=== PATIENT | male | born 2000 | race African-American/Black ===

== ENCOUNTER 2025-04-10 08:43 | Inpatient (IN) | payer OTHER ==
[~2025-04-10] VITALS: Ht 182.9 cm; Wt 74.9 kg
--- NOTE | 2025-04-10 09:01 | ED.PDOC ---
History of Present Illness HPI Comments 25-year-old male BIBA with prior medical history of diabetes in the chief complaint of abdominal pain. EMS report that the patient has been having abdominal pain, chest tightness, N/V with emesis being redby patient for the past two days. Patient did take his insulin yesterday morning and when EMS arrived on scene three 77 and in the ER of 330. Denies chills, fever, /D, SOB, CP. No other associated symptoms, modifiers, recent injuries or sick contacts present at this time. Chief Complaint: Abdominal Pain Time Seen by MD: 09:00 Reviewed Notes: Nurses Notes, Medications, Allergies Allergies: Coded Allergies: NO KNOWN ALLERGIES (Unverified , 04/10/25) Information Source: Patient, Emergency Med Personnel Mode of Arrival: EMS Severity: Moderate Timing: Hours Duration: Since onset, Hours Prehospital treatment: None Past Medical History PAST MEDICAL HISTORY: DM Surgical History: Denies all surgeries Family History Family History: Reviewed,noncontributory to illness, Unknown Social History Smoker: Non-Smoker Alcohol: Denies ETOH Use Drugs: Denies Drug Use Lives In: Home Constitutional: denies: chills, diaphoresis, fatigue, fever, malaise, sweats, weakness, others EENTM: denies: blurred vision, double vision, ear bleeding, ear discharge, ear drainage, ear pain, ear ringing, eye pain, eye redness, hearing loss, mouth pain, mouth swelling, nasal discharge, nose bleeding, nose congestion, nose pain, photophobia, tearing, throat pain, throat swelling, voice changes, others Respiratory: denies: cough, hemoptysis, orthopnea, SOB at rest, shortness of breath, SOB with excertion, stridor, wheezing, others Cardiovascular: reports: chest pain; denies: dizzy spells, diaphoresis, Dyspnea on exertion, edema, irregular heart beat, left arm pain, lightheadedness, palpitations, PND, syncope, others Gastrointestinal: reports: abdominal pain, nausea, vomiting; denies: abdomen distended, blood streaked bowels, constipated, diarrhea, dysphagia, difficulty swallowing, hematemesis, melena, poor appetite, poor fluid intake, rectal bleeding, rectal pain, others Genitourinary: denies: burning, dysuria, flank pain, frequency, hematuria, incontinence, penile discharge, penile sore, pain, testicle pain, testicle swelling, urgency, others Neurological: denies: dizziness, fainting, headache, left sided numbness, left sided weakness, numbness, paresthesia, pre-existing deficit, right sided numbness, right sided weakness, seizure, speech problems, tingling, tremors, weakness, others Musculoskeletal: denies: back pain, gout, joint pain, joint swelling, muscle pain, muscle stiffness, neck pain, others Integumetry: denies: bruises, change in color, change in hair/nails, dryness, laceration, lesions, lumps, rash, wounds, others Allergic/Immunocompromised: denies: Difficulty Healing, Frequent Infections, Hives, Itching, others Hematologic/Lymphatic: denies: anemia, blood clots, easy bleeding, easy bruising, swollen glands, others Endocrine: denies: excessive hunger, excessive sweating, excessive thirst, excessive urination, flushing, intolerance to cold, intolerance to heat, unexplained weight gain, unexplained weight loss, others Psychiatric: denies: anxiety, bipolar disorder, depression, hopeless, panic disorder, schizophrenia, sleepless, suicidal, others All Other Systems: Reviewed and Negative Physical Exam General Appearance: Moderate Distress, Normal HEENT: Normal ENT Inspection, Pharynx Normal, TMs Normal Neck: Full Range of Motion, Non-Tender, Normal, Normal Inspection Respiratory: Chest Non-Tender, Lungs Clear, No Accessory Muscle Use, No Respiratory Distress, Normal Breath Sounds Cardiovascular: No Edema, No JVD, No Murmur, No Gallop, Normal Peripheral Pulses, Regular Rate/Rhythm Breast Exam: Deferred Gastrointestinal: No Organomegaly, Non Tender, No Pulsatile Mass, Normal Bowel Sounds, Soft Genitalia: Deferred Pelvic: Deferred Rectal: Deferred Extremities: No calf tenderness, Normal capillary refill, Normal inspection, Normal range of motion, Non-tender, No pedal edema Musculoskeletal : Apperance: Normal Neurologic: Alert, 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 Was a procedure done?: No Differential Dx Considerations may include: Anemia Electrolyte imbalance X-Ray, Labs, Meds, VS Vital Signs Date Time Temp Pulse Resp B/P (MAP) Pulse Ox O2 Delivery O2 Flow Rate FiO2 04/10/25 14:00 89 16 125/62 (83) 95 04/10/25 12:00 98.1 95 11 144/78 (100) 95 98.1 04/10/25 10:43 101 13 178/101 04/10/25 10:40 97.8 101 13 178/101 (126) 96 97.8 04/10/25 10:40 101 13 96 Room Air* 0 21 04/10/25 09:23 97.9 102 20 147/120 (129) 96 97.9 04/10/25 09:16 111 20 147/120 04/10/25 08:43 97.7 94 18 168/102 99 97.7 Lab Test 04/10/25 09:38 Range/Units White Blood Count 12.0 H 4.4-10.8 10^3/uL Red Blood Count 5.30 4.5-5.90 10^6/uL Hemoglobin 14.3 13.5-17.5 g/dL Hematocrit 43.5 41.0-53.0 % Mean Corpuscular Volume 82.0 80.0-100.0 fL Mean Corpuscular Hemoglobin 27.0 L 28.0-32.0 pg Mean Corpuscular Hemoglobin Concent 32.9 32.0-36.0 g/dL Red Cell Distribution Width 13.8 11.8-14.3 % Platelet Count 240 140-450 10^3/uL Mean Platelet Volume 8.1 6.9-10.8 fL Neutrophils (%) (Auto) 83.9 H 37.0-80.0 % Lymphocytes (%) (Auto) 9.0 L 10.0-50.0 % Monocytes (%) (Auto) 7.0 0.0-12.0 % Eosinophils (%) (Auto) 0.0 0.0-7.0 % Basophils (%) (Auto) 0.1 0.0-2.0 % Neutrophils # (Auto) 10.0 H 1.6-8.6 10 ^3/uL Lymphocytes # (Auto) 1.1 0.4-5.4 10 ^3/uL Monocytes # (Auto) 0.8 0-1.3 10 ^3/uL Eosinophils # (Auto) 0 0-0.8 10 ^3/uL Basophils # (Auto) 0 0-0.2 10 ^3/uL Nucleated Red Blood Cells 0.1 % Sodium Level 138 136-145 mmol/L Potassium Level 4.3 3.5-5.1 mmol/L Chloride Level 97 L 98-107 mmol/L Carbon Dioxide Level 24 20-31 mmol/L Anion Gap 17 H 5-15 Blood Urea Nitrogen 25 H 9-23 mg/dL Creatinine 1.53 H 0.700-1.30 mg/dL Glomerular Filtration Rate Calc 64 >90 mL/min BUN/Creatinine Ratio 16.3 10.0-20.0 Serum Glucose 318 H 74-106 mg/dL Calcium Level 8.7 8.7-10.4 mg/dL Current Medications Medications (Trade) Dose Ordered Sig/Phillip Route Start Time Stop Time Status Last Admin Ondansetron HCl (Zofran) 4 mg ONCE ONCE IV 04/10/25 09:15 04/10/25 09:16 DC 04/10/25 09:17 Sodium Chloride 1,000 ml @ 1,000 mls/hr Q1H ONCE IVB 04/10/25 09:15 04/10/25 10:14 DC 04/10/25 09:12 Morphine Sulfate 4 mg ONCE ONCE IV 04/10/25 09:15 04/10/25 09:16 DC 04/10/25 09:16 Prochlorperazine Edisylate (Compazine Inj) 10 mg ONCE ONCE IV 04/10/25 10:45 04/10/25 10:46 DC 04/10/25 10:58 Patient alert. Blood sugar elevated. Vitals stable. Answering questions. Establish intravenous access. Was given pain medication. Hyperglycemia. Explained to the patient. Continue monitoring. Blood pressure fluctuating. Blood sugar elevated. Anion gap increased. Possible DKA. Was given insulin. Time of 1ST Reevaluation: 09:30 Reevaluation 1ST: Unchanged Patient Education/Counseling: Diagnosis, Treatment, Prognosis Family Education/Counseling: No Family Present SEPSIS Sepsis Screen Vital Signs Date Time Temp Pulse Resp B/P (MAP) Pulse Ox O2 Delivery O2 Flow Rate FiO2 04/10/25 14:00 89 16 125/62 (83) 95 04/10/25 12:00 98.1 95 11 144/78 (100) 95 98.1 04/10/25 10:43 101 13 178/101 04/10/25 10:40 97.8 101 13 178/101 (126) 96 97.8 04/10/25 10:40 101 13 96 Room Air* 0 21 04/10/25 09:23 97.9 102 20 147/120 (129) 96 97.9 04/10/25 09:16 111 20 147/120 04/10/25 08:43 97.7 94 18 168/102 99 97.7 Laboratory Tests Test 04/10/25 09:38 White Blood Count 12.0 10^3/uL (4.4-10.8) H Medications Medications Dose Ordered Sig/Phillip Route Start Time Stop Time Status Last Admin Dose Admin Morphine Sulfate 4 mg ONCE ONCE IV 04/10/25 09:15 04/10/25 09:16 DC 04/10/25 09:16 Ondansetron HCl 4 mg ONCE ONCE IV 04/10/25 09:15 04/10/25 09:16 DC 04/10/25 09:17 Prochlorperazine Edisylate 10 mg ONCE ONCE IV 04/10/25 10:45 04/10/25 10:46 DC 04/10/25 10:58 Sodium Chloride 1,000 ml @ 1,000 mls/hr Q1H ONCE IVB 04/10/25 09:15 04/10/25 10:14 DC 04/10/25 09:12 Departure 1 Departure Time of Disposition: 09:27 Impression: Primary Impression: Uncontrolled diabetes mellitus Qualified Codes: E13.65 - Other specified diabetes mellitus with h yperglycemia Additional Impression: Increased anion gap metabolic acidosis Disposition: ADMITTED INPATIENT Admit to: Med Surg Condition: Guarded Critical Care Note Critical Care Time?: No Stability Stability form required: No Heart Score Heart Score: Heart Score Response (Comments) Value History N/A 0 EKG N/A 0 Age N/A 0 Risk Factors N/A 0 Troponin N/A 0 Total 0 I personally scribed for YANCY SALDANA MD ([email or web address]) on 04/10/25 at 09:01. Electronically submitted by Adam Rockwell ([email or web address]). YANCY SALDANA MD Apr 10, 2025 09:01
[2025-04-10] MEDS: SODIUM CHLORIDE 0.9% 1,000 ML IVB ONE (09:12)
[2025-04-10] MEDS: MORPHINE SULFATE 4 MG/ML SYR/VIAL IV ONE (09:16)
[2025-04-10] MEDS: ONDANSETRON HCL 4 MG/2 ML VIAL IV ONE (09:17)
[2025-04-10 09:59] LABS: Nucleated Red Blood Cells % 0.1 %
[2025-04-10 10:01] LABS: Hematocrit 43.5 % (41.0-53.0); Hemoglobin 14.3 g/dL (13.5-17.5); Mean Corpuscular Hemoglobin 27.0 pg (28.0-32.0); Mean Corpuscular Volume 82.0 fL (80.0-100.0)
[2025-04-10 10:06] LABS: Potassium 4.3 mmol/L (3.5-5.1); Sodium 138 mmol/L (136-145)
[2025-04-10 10:07] LABS: Anion Gap 17 (5-15); Calcium 8.7 mg/dL (8.7-10.4); Carbon Dioxide 24 mmol/L (20-31)
[2025-04-10 10:09] LABS: Chloride 97 mmol/L (98-107)
[2025-04-10 10:12] LABS: BUN/Creatinine Ratio 16.3 (10.0-20.0); Blood Urea Nitrogen 25 mg/dL (9-23); Glucose 318 mg/dL (74-106)
[2025-04-10 10:40] VITALS: PULSE 101; RESP 13; O2SAT 96
[2025-04-10] MEDS: PROCHLORPERAZINE EDISYLATE 5 MG/ML 2ML VIAL IV ONE (10:58)
[2025-04-10] MEDS ORDERED: DEXTROSE (50%) 50ML SYRG IV PRN ×2 (17:00→18:45)
[2025-04-10 17:22] LABS: Base Excess 0.4 mmol/L (-2.0-3.0)
[2025-04-10] MEDS: INSULIN DRIP 100 UNIT/100ML 100 ML IV SCH ×2 (17:50→19:07)
[2025-04-10] MEDS: ACCU-CHEK COMFORT CURVE STRIP VI SCH ×2 (18:09→19:32)
[2025-04-10] MEDS ORDERED: NITROGLYCERIN 0.4 MG SL TAB SL PRN (18:30)
[2025-04-10] MEDS ORDERED: MORPHINE SULFATE INJ 2 MG/ml SYRG IV PRN (18:30)
[2025-04-10] MEDS: ONDANSETRON HCL 4 MG/2 ML VIAL IV PRN (19:00)
[2025-04-10] MEDS: MORPHINE SULFATE INJ 2 MG/ml SYRG IV PRN (19:01)
[2025-04-10] MEDS: SODIUM CHLORIDE 0.9% 1,000 ML IV SCH ×2 (19:08→22:53)
--- NOTE | 2025-04-10 19:13 | DVHHPRES ---
History of Present Illness Resident Creating Document: TAYLOR WOLFF RESIDENT History of Present Illness Deandra Patterson 25 ears old male with a PMH of type 1 diabetes mellitus, HTN presented to the ED with the chief complaints of severe abdominal pain associated with nausea vomiting for past 2 days. Patient reported he has been diagnosed with the diabetes mellitus and he is on insulin Lantus 30 units and short-acting 10 units with each meal. He has been compliant with the insulin but he has been not following the diet properly. Patient reported he started having nausea, vomiting, abdominal pain, was polydipsia polyphagia but for since yesterday the symptoms has been severe and girlfriend said she witnessed him taking insulin yesterday were in the shower contrast into the information provided by paramedics. On my assessment patient denies recent flu-like symptoms, skipping of the insulin, sick contacts and other associated symptoms PMH: Insulin, HTN PSH: None Family history: Noncontributory Social history: Lives at home. Marijuana smoker but no alcohol and other drug abuse Allergies: No known allergies Home medications: Insulin and losartan Review of Systems Review of Systems Patient seen and examined at the bedside. Patient is complaining of severe abdominal pain but nausea vomiting has been controlled. Patient found to have anion gap DKA, started on insulin drip per protocol along with IVF. Continuously monitor labs as per protocol. Gastrointestinal: Nausea, Vomiting, Abdominal Pain Allergies: Coded Allergies: NO KNOWN ALLERGIES (Unverified , 04/10/25) Medications Current Medications Medications Dose Ordered Sig/Phillip Route Start Time Stop Time Status Last Admin Dose Admin Sodium Chloride 10 ml Q8HR IV 04/10/25 22:00 Ondansetron HCl 4 mg Q4HP PRN IV 04/10/25 18:30 04/10/25 19:00 4 MG Enoxaparin Sodium 40 mg DAILY SC 04/11/25 10:00 Acetaminophen 650 mg Q6HP PRN PO 04/10/25 18:30 Morphine Sulfate 2 mg Q4HPRN PRN IV 04/10/25 18:30 04/10/25 19:01 2 MG Nitroglycerin 0.4 mg Q5MINP PRN SL 04/10/25 18:30 Morphine Sulfate 2 mg Q30M PRN IV 04/10/25 18:30 Sodium Chloride 1,000 ml @ 500 mls/hr Q2H IV 04/10/25 18:45 04/10/25 22:44 Sodium Chloride 1,000 ml @ 250 mls/hr Q4H IV 04/10/25 22:45 04/11/25 00:44 Sodium Chloride 1,000 ml @ 150 mls/hr Q6H40M IV 04/11/25 00:45 Insulin Human (Reg)/Sodium Chloride 100 ml @ 0.5 mls/hr Q24H IV 04/10/25 18:45 Dextrose 50 ml UD PRN IV 04/10/25 18:45 Diagnostic Test (Pha) 1 strip Q90MIN 04/10/25 19:30 Insulin Glargine 15 units DAILY SC 04/11/25 10:00 Exam Vital Signs Vital Signs Date Time Temp Pulse Resp B/P (MAP) Pulse Ox O2 Delivery O2 Flow Rate FiO2 04/10/25 19:01 99 17 155/89 04/10/25 18:00 95 04/10/25 16:56 Room Air* 0 21 04/10/25 16:00 98.6 98.6 Exam Pt is lying on bed General Appearance: Alert, Oriented X3, Cooperative, Severe distress HEENT: Atraumatic, Mucous membranes dry Respiratory: Clear to auscultation, Normal air movement, No added sounds Cardiovascular: Regular rate, Normal S1, Normal S2, No murmurs Abdominal: generalized tenderness, Active bowel sounds, Soft, no distention, Extremities: No edema, Normal pulses, No tenderness/swelling Skin: No Significant rash, except past surgical scars Neuro: Normal speech, sensorimotor deficits none Psych/Mental Status: Mental status NL, Mood NL Nurse was there as slot floor attendant during examination Labs/Xrays Labs Test 04/10/25 18:57 04/10/25 17:12 04/10/25 16:59 04/10/25 09:38 Range/Units Blood Gas Specimen Type Arterial Blood Gas Sample Site Right radial Blood Gas Patient Temperature 37.0 Arterial Blood Date Drawn [id number] Arterial Blood pH 7.455 H 7.350-7.450 Arterial Blood Partial Pressure CO2 34.7 L 35.0-48.0 mmHg Arterial Blood Partial Pressure O2 104.9 83.0-108.0 mmHg Arterial Blood HCO3 23.8 21.0-28.0 mmol/L Arterial Blood Oxygen Saturation 98.2 H 94.0-98.0 % Arterial Blood Base Excess 0.4 -2.0-3.0 mmol/L Arterial Blood Oxyhemoglobin 96.9 94.0-98.0 % Arterial Blood Carboxyhemoglobin 0.8 0.5-1.5 % Arterial Blood Methemoglobin 0.5 0.0-1.5 % Asher Test Yes Blood Gas Total Hemoglobin 13.80 13.5-17.5 g/dL Blood Gas Modality Room air FiO2 % 21.0 POC Glucose 170 H 70-106 mg/dl Eosinophils (%) (Auto) 0.0 0.0-7.0 % Eosinophils # (Auto) 0 0-0.8 10 ^3/uL Basophils # (Auto) 0 0-0.2 10 ^3/uL Nucleated Red Blood Cells 0.1 % SEPSIS Sepsis Screen Date sepsis recognized/suspect: Apr 10, 2025 Time Sepsis recognized/suspect: 1655 Recent Procedure: No On Antibiotic Therapy: No Respiratory Rate >20: No Heart Rate >90: No Temp<36 C (96.8 F) or >38.3 C: No SBP <90 or MAP <65 mmHG: No New Acute Mental Status Change: No Is the patient on CPAP, BIPAP,: No Physician Orders Abg W/ Co-Ox (04/10/25 16:52) D/C All Diabetic Medications (04/10/25 16:52) Insulin Drip Protocol (04/10/25 16:52) Admit (04/10/25 18:29) Allergies (04/10/25 18:29) Code Status (04/10/25 18:29) Sodium Chloride Lock (Saline Lock Ns) (04/10/25 22:00) Ondansetron Hcl (Zofran) (04/10/25 18:30) Enoxaparin Sodium (Lovenox) (04/11/25 10:00) Complete Blood Count (04/11/25 04:00) Comprehensive Metabolic Panel (04/11/25 04:00) Npo (Nothing By Mouth) Diet (04/10/25 Dinner) Condition: Fair (04/10/25 18:29) Acetaminophen Tablet (Tylenol Tablet) (04/10/25 18:30) Morphine Sulfate Injection (04/10/25 18:30) Nitroglycerin Sublingual (Ntrostat Subli (04/10/25 18:30) Morphine Sulfate Injection (04/10/25 18:30) Oxygen By Nasal Cannula (04/10/25 18:29) Stat Ekg For Chest Pain (04/10/25 18:29) Notify Of Changes From Base (04/10/25 18:29) Shop Superintendent For 24 Hours (04/10/25 18:29) Emergency Dysrhythmia Protocol (04/10/25 18:29) Rhythm Strips Once Every Shift (04/10/25 18:29) Insulin Drip Protocol (04/10/25 ) Sodium Chloride 0.9% (04/10/25 18:45) Sodium Chloride 0.9% (04/10/25 22:45) Sodium Chloride 0.9% (04/11/25 00:45) Insulin Drip 100 Unit/100ml (Myxredlin 1 (04/10/25 18:45) Dextrose 50% Syringe (04/10/25 18:45) Glucose Blood (Accu-Chek Comfort Curve T (04/10/25 19:30) Complete Blood Count (04/10/25 18:40) Basic Metabolic Panel (04/10/25 18:40) Phosphorus (04/10/25 18:40) Magnesium (04/10/25 18:40) Osmolality, Serum (04/10/25 18:40) Basic Metabolic Panel (04/11/25 00:40) Basic Metabolic Panel (04/11/25 06:40) Basic Metabolic Panel (04/11/25 12:40) Urinalysis (04/10/25 18:40) Neurological Assessment (04/10/25 18:40) Vs/Hemodynamics .PER UNIT PROTOCOL (04/10/25 18:40) Acetone (04/10/25 18:40) Insulin Lantus (Glargine) (Lantus) (04/11/25 10:00) Vitamin B12 (04/10/25 18:40) Vitamin D, 25-Hydroxy (04/10/25 18:40) Drug Screen (04/10/25 18:40) Hemoglobin A1c (04/10/25 18:40) Lactic Acid W/ Reflex Order (04/10/25 18:40) PTPTT (04/10/25 18:40) Chest Portable (04/10/25 18:44) Blood Alcohol (04/10/25 18:40) Hydralazine Injection (Apresoline Inject (04/10/25 19:15) Vital Signs Date Time Temp Pulse Resp B/P (MAP) Pulse Ox O2 Delivery O2 Flow Rate FiO2 04/10/25 19:01 99 17 155/89 04/10/25 18:00 93 16 165/94 (117) 95 04/10/25 16:56 98 Room Air* 0 21 04/10/25 16:00 98.6 87 16 120/66 (84) 95 98.6 04/10/25 14:00 89 16 125/62 (83) 95 04/10/25 12:00 98.1 95 11 144/78 (100) 95 98.1 Laboratory Tests Test 04/10/25 09:38 04/10/25 18:57 White Blood Count 12.0 10^3/uL (4.4-10.8) H Pending Lactic Acid Level Pending Medications Medications Dose Ordered Sig/Phillip Route Start Time Stop Time Status Last Admin Dose Admin Diagnostic Test (Pha) 1 strip Q90MIN 04/10/25 18:00 04/10/25 18:48 DC 04/10/25 18:09 1 STRIP Insulin Human (Reg)/Sodium Chloride 100 ml @ 0.5 mls/hr Q24H IV 04/10/25 17:00 04/10/25 18:48 DC 04/10/25 18:00 1.5 MLS/HR Morphine Sulfate 2 mg Q4HPRN PRN IV 04/10/25 18:30 04/10/25 19:01 2 MG Morphine Sulfate 4 mg ONCE ONCE IV 04/10/25 09:15 04/10/25 09:16 DC 04/10/25 09:16 4 MG Ondansetron HCl 4 mg ONCE ONCE IV 04/10/25 09:15 04/10/25 09:16 DC 04/10/25 09:17 4 MG Ondansetron HCl 4 mg Q4HP PRN IV 04/10/25 18:30 04/10/25 19:00 4 MG Prochlorperazine Edisylate 10 mg ONCE ONCE IV 04/10/25 10:45 04/10/25 10:46 DC 04/10/25 10:58 10 MG Sodium Chloride 1,000 ml @ 1,000 mls/hr Q1H ONCE IVB 04/10/25 09:15 04/10/25 10:14 DC 04/10/25 09:12 1,000 MLS/HR Assessment/Plan Assessment/Plan # Type 1 DM complicated by DKA # Elevated anion gap metabolic acidosis # DKA # severe dehydration # R/o Sepsis, leukocytosis likely due to reactive - ICU status - continuously monitor BMP q.6 - elevated ketones - HbA1c pending - start insulin drip per protocol - starting IVF boluses as per protocol - D50 if glucose less than 250 - replenish electrolytes as needed # PALOMO likely due to VMN -monitor lab -avoid nephrotoxic agents -IVF # hypertensive urgency -continuously monitor -hydralazine p.r.n. -no losartan due to PALOMO # marijuana use disorder -counseled regarding cessation for more than 17 minutes GI PPX: Protonix VTE ppx: Lovenox Diet: NPO Goals of care addressed with the patient for more than 27 minutes: Full code status Case discussed with Dr. Spencer ,patient and nurse Plan discussed with: Patient, Other (Patient's girlfriend and nurse) My Orders Orders - TAYLOR WOLFF RESIDENT Procedure Category Date Status Time Admit ADMIT 04/10/25 Transmitted 18:29 Allergies BONNIE 04/10/25 In Process 18:29 Code Status CODE 04/10/25 Transmitted 18:29 Sodium Chloride Lock PHA 04/10/25 In Process (Saline Lock Ns) 22:00 Ondansetron Hcl PHA 04/10/25 In Process (Zofran) 18:30 Enoxaparin Sodium PHA 04/11/25 In Process (Lovenox) 10:00 Complete Blood Count LAB 04/11/25 Verified 04:00 Comprehensive LAB 04/11/25 Verified Metabolic Panel 04:00 Npo (Nothing By DIET 04/10/25 Transmitted Mouth) Diet Dinner Condition: Fair BONNIE 04/10/25 In Process 18:29 Acetaminophen Tablet PHA 04/10/25 In Process (Tylenol Tablet) 18:30 Morphine Sulfate PHA 04/10/25 In Process Injection 18:30 Nitroglycerin PHA 04/10/25 In Process Sublingual (Ntrostat 18:30 Morphine Sulfate PHA 04/10/25 In Process Injection 18:30 Oxygen By Nasal RT 04/10/25 Transmitted Cannula 18:29 Stat Ekg For Chest BONNIE 04/10/25 In Process Pain 18:29 Notify Of Changes BONNIE 04/10/25 In Process From Base 18:29 Shop Superintendent For BONNIE 04/10/25 In Process 24 Hours 18:29 Emergency Dysrhythmia BONNIE 04/10/25 In Process Protocol 18:29 Rhythm Strips Once BONNIE 04/10/25 In Process Every Shift 18:29 Insulin Drip Protocol BONNIE 04/10/25 In Process Sodium Chloride 0.9% PHA 04/10/25 In Process 18:45 Sodium Chloride 0.9% PHA 04/10/25 In Process 22:45 Sodium Chloride 0.9% PHA 04/11/25 In Process 00:45 Insulin Drip 100 PHA 04/10/25 In Process Unit/100ml (Myxredlin 18:45 Dextrose 50% Syringe PHA 04/10/25 In Process 18:45 Glucose Blood PHA 04/10/25 In Process (Accu-Chek Comfort 19:30 Complete Blood Count LAB 04/10/25 In Process 18:40 Basic Metabolic Panel LAB 04/10/25 In Process 18:40 Phosphorus LAB 04/10/25 In Process 18:40 Magnesium LAB 04/10/25 In Process 18:40 Osmolality, Serum LAB 04/10/25 In Process 18:40 Basic Metabolic Panel LAB 04/11/25 Verified 00:40 Basic Metabolic Panel LAB 04/11/25 Verified 06:40 Basic Metabolic Panel LAB 04/11/25 Verified 12:40 Urinalysis LAB 04/10/25 Logged 18:40 Neurological BONNIE 04/10/25 In Process Assessment 18:40 Vs/Hemodynamics BONNIE 04/10/25 In Process 18:40 Acetone LAB 04/10/25 In Process 18:40 Insulin Lantus PHA 04/11/25 In Process (Glargine) (Lantus) 10:00 Vitamin B12 LAB 04/10/25 In Process 18:40 Vitamin D, 25-Hydroxy LAB 04/10/25 In Process 18:40 Drug Screen LAB 04/10/25 Logged 18:40 Hemoglobin A1c LAB 04/10/25 In Process 18:40 Lactic Acid W/ Reflex LAB 04/10/25 In Process Order 18:40 PTPTT LAB 04/10/25 In Process 18:40 Chest Portable XY 04/10/25 Taken 18:44 Blood Alcohol LAB 04/10/25 In Process 18:40 Hydralazine Injection PHA 04/10/25 Logged (Apresoline Inject 19:15 TAYLOR WOLFF RESIDENT Apr 10, 2025 19:13
[2025-04-10 19:27] LABS: Hematocrit 38.5 % (41.0-53.0); Hemoglobin 13.1 g/dL (13.5-17.5); Mean Corpuscular Hemoglobin 27.5 pg (28.0-32.0); Mean Corpuscular Volume 80.9 fL (80.0-100.0); Nucleated Red Blood Cells % 0.1 %
[2025-04-10 19:30] LABS: Chloride 102 mmol/L (98-107); Potassium 3.6 mmol/L (3.5-5.1); Sodium 141 mmol/L (136-145)
[2025-04-10 19:31] LABS: Anion Gap 12 (5-15); Carbon Dioxide 27 mmol/L (20-31)
[2025-04-10 19:36] LABS: BUN/Creatinine Ratio 21.4 (10.0-20.0); Blood Urea Nitrogen 22 mg/dL (9-23)
[2025-04-10 19:37] LABS: Magnesium 2.5 mg/dL (1.6-2.6)
[2025-04-10 19:40] LABS: INR 1.04 (0.9-1.15); Partial Thromboplastin Time 24.6 SEC (24.5-34.5); Prothrombin Time 11.0 sec (9.3-11.8)
[2025-04-10 19:49] LABS: Calcium 8.5 mg/dL (8.7-10.4); Glucose 152 mg/dL (74-106)
[2025-04-10] MEDS: PANTOPRAZOLE 40 MG/10 ML VIAL INJ IV SCH (20:03)
--- NOTE | 2025-04-10 20:40 | DVH ---
CHEST RADIOGRAPH Indication: sob Technique: Single frontal view of the chest was obtained Comparison: None FINDINGS: Lines and Tubes: None Lungs: No focal consolidation. Pleura: No effusion. No pneumothorax. Cardiomediastinal contours: Unremarkable Bones: No acute osseous abnormality. IMPRESSION: 1. No acute cardiopulmonary disease.
[2025-04-10] MEDS: ACETAMINOPHEN 325 MG TAB PO PRN (21:45)
[2025-04-10 22:00] VITALS: PULSE 92; RESP 16; O2SAT 96
[2025-04-10] MEDS: SODIUM CHLOR 0.9% PF (SALINE LOCK) 10ML VIAL/SYR IV SCH (22:16)
[2025-04-10] MEDS: hydrALAZINE HCL 20 MG/ML VL IV PRN (22:46)
[2025-04-11] MEDS: SODIUM CHLORIDE 0.9% 1,000 ML IV SCH ×2 (00:45→13:48)
[2025-04-11 03:27] LABS: Hematocrit 38.6 % (41.0-53.0); Hemoglobin 12.7 g/dL (13.5-17.5); Mean Corpuscular Hemoglobin 27.0 pg (28.0-32.0); Mean Corpuscular Volume 81.7 fL (80.0-100.0); Nucleated Red Blood Cells % 0.1 %
[2025-04-11 03:48] LABS: Alanine Aminotransferase 15 U/L (7-40); Albumin 4.0 g/dL (3.2-4.8); Alkaline Phosphatase 82 U/L (46-116); Anion Gap 13 (5-15); BUN/Creatinine Ratio 22.6 (10.0-20.0); Bilirubin, Total 0.6 mg/dL (0.2-1.0); Blood Urea Nitrogen 19 mg/dL (9-23); Carbon Dioxide 24 mmol/L (20-31); Chloride 104 mmol/L (98-107); Potassium 3.5 mmol/L (3.5-5.1); Sodium 141 mmol/L (136-145); Total Protein 6.3 g/dL (5.7-8.2)
[2025-04-11 04:06] LABS: Calcium 8.1 mg/dL (8.7-10.4); Glucose 116 mg/dL (74-106)
--- NOTE | 2025-04-11 08:07 | DVHPN2 ---
Subjective Decreasing abdominal pain; no more nausea/vomiting Reviewed: Care Plan, H&P, Labs, Medications, Previous Orders, Radiology Changes from previous H/P or p: Changes Objective Vitals Vital Signs Date Time Temp Pulse Resp B/P (MAP) Pulse Ox O2 Delivery O2 Flow Rate FiO2 04/11/25 07:55 68 16 162/87 04/11/25 03:00 97 04/10/25 23:00 98.5 98.5 04/10/25 22:00 Room Air* 0 21 Intake/Output Intake and Output 04/11/25 07:00 Intake Total 3001.5 ml Output Total 500 ml Balance 2501.5 ml Intake IV Total 3001.5 ml Output Urine Total 500 ml General Appearance: Alert, Oriented X3, Cooperative, No acute distress HEENT: Atraumatic Lungs: Clear to auscultation, Normal air movement Cardiovascular: Regular rate, Normal S1, Normal S2, No murmurs Abdomen: Normal bowel sounds, Soft, No tenderness Neuro: Normal speech, Cranial nerves 3-12 NL Psych/Mental Status: Mental status NL, Mood NL Medications Current Medications Medications Dose Ordered Sig/Phillip Route Start Time Stop Time Status Last Admin Dose Admin Sodium Chloride 10 ml Q8HR IV 04/10/25 22:00 04/11/25 06:12 10 ML Ondansetron HCl 4 mg Q4HP PRN IV 04/10/25 18:30 04/11/25 06:53 4 MG Enoxaparin Sodium 40 mg DAILY SC 04/11/25 10:00 Acetaminophen 650 mg Q6HP PRN PO 04/10/25 18:30 04/10/25 21:45 650 MG Morphine Sulfate 2 mg Q4HPRN PRN IV 04/10/25 18:30 04/11/25 06:58 2 MG Nitroglycerin 0.4 mg Q5MINP PRN SL 04/10/25 18:30 Morphine Sulfate 2 mg Q30M PRN IV 04/10/25 18:30 Sodium Chloride 1,000 ml @ 150 mls/hr Q6H40M IV 04/11/25 00:45 04/11/25 07:55 150 MLS/HR Insulin Human (Reg)/Sodium Chloride 100 ml @ 0.5 mls/hr Q24H IV 04/10/25 18:45 04/10/25 19:07 1 MLS/HR Dextrose 50 ml UD PRN IV 04/10/25 18:45 Diagnostic Test (Pha) 1 strip Q90MIN 04/10/25 19:30 04/11/25 06:48 1 STRIP Insulin Glargine 15 units DAILY SC 04/11/25 10:00 Hydralazine HCl 10 mg Q6HP PRN IV 04/10/25 19:15 04/10/25 22:46 10 MG Pantoprazole Sodium 40 mg DAILY IV 04/10/25 19:15 04/10/25 20:03 40 MG Laboratory Results Laboratory Tests 04/11/25 03:06 Chemistry Test 04/10/25 09:38 04/10/25 18:57 04/11/25 03:06 Calcium Level 8.7 mg/dL (8.7-10.4) 8.5 mg/dL (8.7-10.4) L 8.1 mg/dL (8.7-10.4) L Magnesium Level 2.5 mg/dL (1.6-2.6) Phosphorus Level 1.8 mg/dL (2.4-5.1) L Albumin 4.0 g/dL (3.2-4.8) Total Protein 6.3 g/dL (5.7-8.2) Coagulation Test 04/10/25 18:57 Prothrombin Time 11.0 sec (9.3-11.8) Prothrombin Time INR 1.04 (0.9-1.15) Activated Partial Thromboplast Time 24.6 SEC (24.5-34.5) LFT Test 04/11/25 03:06 Alanine Aminotransferase (ALT) 15 U/L (7-40) Alkaline Phosphatase 82 U/L (46-116) Aspartate Amino Transferase (AST) 14 U/L (13-40) Total Bilirubin 0.6 mg/dL (0.2-1.0) HgA1c, TSH Test 04/10/25 18:57 Hemoglobin A1c 13.4 % A1C (<5.7) H Blood Gas Results Test 04/10/25 17:12 Arterial Blood pH 7.455 (7.350-7.450) FiO2 % 21.0 Labs and/or images reviewed: Labs reviewed by me, Image(s) reviewed by me Assessment/Plan Assessment/Plan A 25-year-old male patient; with type 1 diabetes mellitus associated with recurrent DKA episode due to nonadherence to diet restriction; who presented to emergency department with abdominal pain associated with nausea and vomiting. Abdominal pain with nausea and vomiting due to DKA DKA in the setting of uncontrolled diabetes mellitus type 1; anion gap closed Anion gap metabolic acidosis due to DKA Uncontrolled diabetes mellitus type 1 with hemoglobin A1c of 13.4% PALOMO; most likely vasomotor nephropathy Leukocytosis; most likely reactive; no signs/symptoms of infection Normocytic anemia; most likely inflammatory; no signs/symptoms of bleeding Nonadherence Marijuana use disorder To transition the patient from insulin drip to subcutaneous insulin To start diet 2 hours after transition Continue insulin management and adjust according to blood glucose monitoring Continue pain management as indicated Continue IV fluids Avoid nephrotoxic agents Counseled the patient on the importance of adherence to medical management including medications and low carb diet with exercise Counseled for 16 minutes for marijuana use cessation Continue close monitoring Goals of care discussed with the patient for 20 minutes; full code 90 minutes of critical care time Late Entry. This medical document was created using an electronic medical record system with computerized dictation system. Although this document has been carefully reviewed, there might still be some phonetic and typographical errors. These areas are purely typographical due to imperfections of the software programs, and do not reflect any compromise in the patient's medical care. Plan discussed with: Patient, Other (Nurse) Date of Service: Apr 11, 2025 Billing Provider: YASSINE MULLER MD Common Visit Codes: 64817-LUTPGHNA CARE 30-74 MIN (90 minutes), 74626-HPXRYLEH CARE-EACH +30MIN Secondary Visit Codes: 20350-FCZOK CHNG SMOKING >10MIN (Counseled for 16 minutes on marijuana use cessation), 53254-IRXWGNAX CARE PLAN 30 MINUTES (20 minutes) YASSINE MULLER MD Apr 11, 2025 08:07
[2025-04-11] MEDS ORDERED: DEXTROSE (50%) 50ML SYRG IV PRN (09:15)
[2025-04-11 09:45] VITALS: BP 159/92; PULSE 89; TEMP 98.3; O2SAT 99
[2025-04-11] MEDS ORDERED: INSULIN LANTUS (GLARGINE) 1 /0.01ml (100units/ml) SC SCH ×2 (10:00→22:00)
[2025-04-11] MEDS: ENOXAPARIN SOD 40 MG/0.4 ML SYRINGE SC SCH (10:23)
[2025-04-11 10:38] VITALS: BP 159/92; PULSE 89; RESP 20; TEMP 98.3; O2SAT 99
[2025-04-11] MEDS: ACCU-CHEK COMFORT CURVE STRIP VI SCH (11:30)
[2025-04-11] MEDS: InsuLIN REG 1unit/0.01ml Soln (100units/ml) SC SCH ×2 (11:30→21:32)
[2025-04-11 12:30] VITALS: BP 149/79; PULSE 90; RESP 16; TEMP 98.4; O2SAT 95
[2025-04-11 18:05] VITALS: BP 179/101; PULSE 80; RESP 14; TEMP 98.5; O2SAT 99
[2025-04-11 18:27] VITALS: PULSE 80; RESP 14; O2SAT 99
[2025-04-11 21:00] VITALS: BP 125/89; PULSE 89; RESP 15; TEMP 98.5; O2SAT 96
[2025-04-11] MEDS: INSULIN LANTUS (GLARGINE) 1 /0.01ml (100units/ml) SC SCH (21:31)
[2025-04-12] VITALS (8 sets, daily range): BP systolic 141–169; BP diastolic 85–107; PULSE 67–95; RESP 17–81; TEMP 97.8–98.5; O2SAT 97–99
[2025-04-12 06:23] LABS: Chloride 100 mmol/L (98-107); Potassium 3.5 mmol/L (3.5-5.1); Sodium 137 mmol/L (136-145)
[2025-04-12 06:24] LABS: Anion Gap 16 (5-15); Carbon Dioxide 21 mmol/L (20-31)
[2025-04-12 06:30] LABS: BUN/Creatinine Ratio 10.5 (10.0-20.0)
[2025-04-12 06:31] LABS: Blood Urea Nitrogen 9 mg/dL (9-23); Calcium 8.5 mg/dL (8.7-10.4); Glucose 162 mg/dL (74-106)
[2025-04-12 06:37] LABS: Hematocrit 36.7 % (41.0-53.0); Hemoglobin 12.6 g/dL (13.5-17.5); Mean Corpuscular Hemoglobin 27.8 pg (28.0-32.0); Mean Corpuscular Volume 81.0 fL (80.0-100.0); Nucleated Red Blood Cells % 0.1 %
[2025-04-12] MEDS: LOSARTAN POTASSIUM 25 MG TAB PO SCH (11:22)
--- NOTE | 2025-04-12 12:14 | DVH ---
CT CT AB PEL WO CON-NO ORAL OR IV INDICATION: Severe abdominal pain EXAM DATE: 04/12/2025 11:07 AM COMPARISON: None RADIATION DOSE: CTDIvol: 5.88 mGy, DLP: 352.92 mGy*cm PROCEDURE: Helical CT images were obtained of the abdomen and pelvis without IV contrast Sagittal and coronal reconstructions are provided. ORAL CONTRAST: None. ADDITIONAL IMAGES / REFORMATS: None All C T scans at this medical facility are performed using dose modulation techniques as appropriate to a p erformed exam including the following: Automated exposure control was utilized; adjustment of the MA and/or KV according to patient size; and use of iterative reconstruction technique. FINDINGS: LUNG BASE: Normal. LIVER: Normal. GALLBLADDER AND BILIARY TREE: No calcified gallstones. Normal caliber wall. No intra- or extrahepatic biliary ductal dilation. PANCREAS: Normal. SPLEEN: Normal. BOWEL: Normal. Appendix is not definitively visualized. ADRENALS: Normal. KIDNEYS AND URETER: Normal. BLADDER: Normal. REPRODUCTIVE ORGANS: Normal. LYMPH NODES:No lymphadenopathy. PERITONEUM: No ascites or free air. No other fluid collection. VESSELS: Normal RETROPERITONEUM: Normal. ABDOMINAL WALL: Normal. BONES: Normal. IMPRESSION: No acute intraabdominal abnormality.
--- NOTE | 2025-04-12 17:10 | DVHPNRES ---
Progress Note Date Seen: Apr 12, 2025 Resident Creating Document: TAYLOR WOLFF RESIDENT Medical Necessity Reason Pt with a Central, PICC or Fol: No Subjective Review of Systems Patient seen and examined at the bedside. Patient reported mild improvement in his symptoms but still complaining of having mild abdominal pain, ordered a CT abdominal pelvis showed no acute findings. Continuously monitoring. Objective vital signs Vital Sign Date Time Temp Pulse Resp B/P (MAP) Pulse Ox O2 Delivery O2 Flow Rate FiO2 04/12/25 13:04 72 156/86 (109) 04/12/25 12:58 97.9 18 99 97.9 04/12/25 08:25 Room Air* 0 21 Total Intake and Output 04/11/25 04/11/25 04/12/25 15:00 23:00 07:00 Intake Total 500 ml 835 ml Output Total 800 ml Balance 500 ml 35 ml medications Current Medications Medications Dose Ordered Sig/Phillip Route Start Time Stop Time Status Last Admin Dose Admin Ondansetron HCl 4 mg Q4HP PRN IV 04/10/25 18:30 04/12/25 02:23 4 MG Enoxaparin Sodium 40 mg DAILY SC 04/11/25 10:00 04/12/25 08:56 40 MG Acetaminophen 650 mg Q6HP PRN PO 04/10/25 18:30 04/11/25 18:14 650 MG Morphine Sulfate 2 mg Q4HPRN PRN IV 04/10/25 18:30 04/12/25 08:57 2 MG Nitroglycerin 0.4 mg Q5MINP PRN SL 04/10/25 18:30 Pantoprazole Sodium 40 mg DAILY IV 04/10/25 19:15 04/12/25 08:56 40 MG Sodium Chloride 1,000 ml @ 75 mls/hr [id number] IV 04/11/25 09:15 04/12/25 11:24 75 MLS/HR Diagnostic Test (Pha) 1 strip ACHS 04/11/25 11:30 04/12/25 16:38 1 STRIP Insulin Human Regular AC SC 04/11/25 11:30 04/12/25 16:38 2 UNITS Insulin Human Regular HS SC 04/11/25 22:00 Dextrose 50 ml UD PRN IV 04/11/25 09:15 Insulin Glargine 20 units BID@0700,2200 SC 04/11/25 22:00 Losartan Potassium 25 mg DAILY PO 04/12/25 10:00 04/12/25 11:22 25 MG Examination Pt is lying on bed General Appearance: Alert, Oriented X3, Cooperative, Severe distress HEENT: Atraumatic, Mucous membranes dry Respiratory: Clear to auscultation, Normal air movement, No added sounds Cardiovascular: Regular rate, Normal S1, Normal S2, No murmurs Abdominal: generalized tenderness, Active bowel sounds, Soft, no distention, Extremities: No edema, Normal pulses, No tenderness/swelling Skin: No Significant rash, except past surgical scars Neuro: Normal speech, sensorimotor deficits none Psych/Mental Status: Mental status NL, Mood NL Nurse was there as alley worker during examination laboratory and microbiology Laboratory Tests 04/12/25 05:25 Test 04/12/25 05:25 Range/Units Serum Glucose 162 H 74-106 mg/dL Labs and/or images reviewed: Labs reviewed by me, Image(s) reviewed by me Problem List/Assessment/Plan Problem List/Assessment/Plan # Type 1 DM complicated by DKA-resolving # Elevated anion gap metabolic acidosis # DKA # severe dehydration # R/o Sepsis, leukocytosis likely due to reactive - ICU status - continuously monitor BMP q.6 - elevated ketones - HbA1c 13.4 - initially started insulin drip per protocol later discontinued - starting IVF boluses as per protocol - D50 if glucose less than 250 - replenish electrolytes as needed - currently on insulin Lantus 20 units b.i.d. # PALOMO likely due to VMN -monitor lab -avoid nephrotoxic agents -IVF # hypertensive urgency -continuously monitor -hydralazine p.r.n. discontinued -added losartan 25 mg daily # marijuana use disorder -counseled regarding cessation for more than 17 minutes GI PPX: Protonix VTE ppx: Lovenox Diet: NPO Goals of care addressed with the patient for more than 27 minutes: Full code status Case discussed with Dr. Mason ,patient and nurse Plan discussed with: Patient My Orders My Orders Orders - TAYLOR WOLFF RESIDENT Procedure Category Date Status Time Losartan Tablet PHA 04/12/25 In Process (Cozaar Tablet) 10:00 Ct Ab Pel Wo Con-No CT 04/12/25 Resulted Oral Or Iv 10:57 Beta-Hydroxybutyrate LAB 04/12/25 In Process 15:16 Complete Blood Count LAB 04/13/25 Verified 04:00 Comprehensive LAB 04/13/25 Verified Metabolic Panel 04:00 TAYLOR WOLFF RESIDENT Apr 12, 2025 17:10
[2025-04-12] MEDS: hydrALAZINE HCL 20 MG/ML VL IV PRN (18:20)
[2025-04-12] MEDS ORDERED: hydrALAZINE HCL 20 MG/ML VL IV PRN (18:30)
[2025-04-13 01:00] VITALS: BP_SYST 135; BP_SYST 154; BP_DIAS 86; BP_DIAS 98; PULSE 81; PULSE 86; RESP 18; RESP 20; TEMP 97.6; TEMP 98; O2SAT 95; O2SAT 99
[2025-04-13 05:00] VITALS: BP_SYST 140; BP_SYST 149; BP_DIAS 103; BP_DIAS 91; PULSE 82; PULSE 89; RESP 20; TEMP 97.5; TEMP 98.4; O2SAT 94; O2SAT 99
[2025-04-13 07:19] LABS: Hematocrit 42.6 % (41.0-53.0); Hemoglobin 14.4 g/dL (13.5-17.5); Mean Corpuscular Hemoglobin 27.3 pg (28.0-32.0); Mean Corpuscular Volume 80.8 fL (80.0-100.0); Nucleated Red Blood Cells % 0.1 %
[2025-04-13 07:39] LABS: Alanine Aminotransferase 12 U/L (7-40); Albumin 4.1 g/dL (3.2-4.8); Alkaline Phosphatase 91 U/L (46-116); Anion Gap 13 (5-15); BUN/Creatinine Ratio 6.7 (10.0-20.0); Calcium 9.0 mg/dL (8.7-10.4); Carbon Dioxide 24 mmol/L (20-31); Chloride 100 mmol/L (98-107); Sodium 137 mmol/L (136-145); Total Protein 6.9 g/dL (5.7-8.2)
[2025-04-13 07:40] LABS: Bilirubin, Total 0.9 mg/dL (0.2-1.0)
[2025-04-13 07:43] LABS: Blood Urea Nitrogen 6 mg/dL (9-23); Glucose 180 mg/dL (74-106); Potassium 3.1 mmol/L (3.5-5.1)
[2025-04-13] MEDS: LOSARTAN POTASSIUM 25 MG TAB PO SCH (09:05)
[2025-04-13] MEDS: POTASSIUM EFFERVESENT TAB 25 MEQ PO ONE (09:05)
[2025-04-13 09:10] VITALS: BP 139/85; PULSE 80
[2025-04-13] MEDS ORDERED: NIFEdipine 10 MG CAP PO SCH (10:00)
[2025-04-13 12:56] VITALS: BP 156/97; PULSE 78; RESP 19; TEMP 99; O2SAT 98
[2025-04-13 12:58] VITALS: BP 156/97; PULSE 78; RESP 19
[2025-04-13] MEDS ORDERED: INSLANTI SC (13:46)
[2025-04-13] MEDS ORDERED: LOS25T PO (13:46)
[2025-04-13] MEDS ORDERED: METO-281 PO (18:30)
[2025-04-13] MEDS ORDERED: LANC-209 XX (18:30)
[2025-04-13] MEDS ORDERED: BLOO-169 XX (18:30)
[2025-04-13] MEDS ORDERED: ALCOPAD58 XX (18:30)
--- NOTE | 2025-04-14 08:42 | PEER ---
Peer to Peer Review Time DATE: 04/14/25 TIME: 08:40 Review and Recommendations: Peer to peer plan Spoke with the [facility] MD Dr. Ybarra regarding the patient and approved stay by [facility] Decision Approved stay TAYLOR WOLFF RESIDENT Apr 14, 2025 08:42
--- NOTE | 2025-04-15 13:40 | ECG ---
[facility] Test Date: 2025-04-11 Test Time: 02:59:06 Pat Name: TACOS SHARIF Department: Room: 0293 B Gender: M Tray Packer: DEMARCUS : 2000 Requested By: YANCY SALDANA Order Number: [id number] Reading MD: Measurements Intervals [place] Rate: 84 P: 41 ND: 136 QRS: 13 QRSD: 99 T: 55 QT: 369 QTc: 437 Interpretive Statements Sinus rhythm RSR' in V1 or V2, right VCD or RVH Probable left ventricular hypertrophy Please click the below link to view image of tracing.
== END 2025-04-13 17:19 | disposition home or self-care (01) | DRG 637 ==
LOC: EDBD 08:43 → ER 08:43 → OVERFLOW 18:29 → TELE-WESTW 04-11 17:53 → WEST WING 04-11 17:59
PROVIDERS: ADMIT Student in an Organized Health Care Education/Training Program; ATTEND Emergency Medicine
DX: E10.10 Type 1 diabetes mellitus with ketoacidosis without coma (principal); N17.0 Acute kidney failure with tubular necrosis; R65.11 Systemic inflammatory response syndrome (SIRS) of non-infectious origin with acute organ dysfunction; I16.0 Hypertensive urgency; I10 Essential (primary) hypertension; D64.9 Anemia, unspecified; E86.0 Dehydration; F12.90 Cannabis use, unspecified, uncomplicated; Z91.119 Patient's noncompliance with dietary regimen due to unspecified reason; Z79.4 Long term (current) use of insulin
CPT/HCPCS: 36415; 36600; 71045; 74176; 80048; 80053; 80320; 82010; 82306; 82607; 82805; 82962; 83036; 83605; 83735; 83930; 84100; 85025; 85610; 85730; 93005; 96361; 96374; 96375; G0378; J1815; J2405; J2470

== ENCOUNTER 2025-04-25 22:14 | Emergency (ER) | payer OTHER ==
[~2025-04-25] VITALS: Ht 182.9 cm; Wt 80.0 kg
[~2025-04-25 22:14] MED LIST: ALCOPAD58 XX; BLOO-169 XX; INSLANTI SC; LANC-209 XX; LOS25T PO; METO-281 PO
[2025-04-26 01:16] VITALS: BP 151/86; PULSE 80; RESP 14; TEMP 98.5; O2SAT 98
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
== END 2025-04-26 06:29 | disposition home or self-care (01) ==
LOC: ER 22:14
DX: Z04.3 Encounter for examination and observation following other accident (principal); Z79.899 Other long term (current) drug therapy; V89.2XXA Person injured in unspecified motor-vehicle accident, traffic, initial encounter; Y93.89 Activity, other specified; Y92.410 Unspecified street and highway as the place of occurrence of the external cause; Y99.8 Other external cause status
CPT/HCPCS: 71046